=== PATIENT | female | born 1965 | race African-American/Black ===

== ENCOUNTER 2017-04-27 10:21 | Emergency (ER) | payer OTHER, MEDICAID ==
[~2017-04-27] VITALS: Ht 162.6 cm; Wt 79.4 kg
[2017-04-27] MEDS ORDERED: SODIUM CHLORIDE 0.9% 1,000 ML IV ONE (11:01)
[2017-04-27 11:24] LABS: Basophils # (auto) 0.1 uL; Eosinophils # (auto) 0.1 uL; Mean Corpuscular Hgb Conc. 31.8 g/dL (32.0-36.0); Monocytes # (auto) 0.3 uL
[2017-04-27] MEDS ORDERED: MORPHINE SULFATE 10 MG/ML INJ 1ML SDV IV ONE (11:30)
[2017-04-27] MEDS ORDERED: ONDANSETRON HCL 4 MG/2 ML VIAL IV ONE (11:30)
[2017-04-27 11:31] LABS: Hematocrit 40.8 % (36.0-46.0); Lymphocytes # (auto) 2.3 uL; Lymphocytes % (auto) 54.4 % (10.0-50.0); Mean Corpuscular Hemoglobin 24.7 pg (28.0-32.0); Mean Corpuscular Volume 77.7 fL (80.0-100.0); Monocytes % (auto) 7.9 % (0.0-12.0); Neutrophils # (auto) 1.4 uL; Neutrophils % (auto) 33.7 % (37.0-80.0); Nucleated Red Blood Cells % 0.2 %; Platelet Count (auto) 267 10^3/uL (140-450); Red Blood Cells 5.25 10^6/uL (4.0-5.20); Red Cell Distribution Width 13.5 % (11.8-14.3); White Blood Cell 4.2 10^3/uL (4.4-10.8)
[2017-04-27 11:34] LABS: Blood Alcohol < 3.0 mg/dL (0-5); Lipase 197 U/L (73-393)
[2017-04-27 11:43] LABS: Alanine Aminotransferase 39 U/L (13-56); Alkaline Phosphatase 64 U/L (45-117); Anion Gap 8 (5-15); Aspartate Aminotransferase 24 U/L (15-37); BUN/Creatinine Ratio 19.5; Bilirubin, Total 0.4 mg/dL (0.2-1.0); Blood Urea Nitrogen 15 mg/dL (7-18); Carbon Dioxide 26 mmol/L (21-32); Chloride 105 mmol/L (98-107); GFR African American 102 mL/min; GFR Non-African American 84 mL/min; Glucose 135 mg/dL (74-106); Magnesium 2.4 mg/dL (1.6-2.6); Potassium 4.1 mmol/L (3.5-5.1); Sodium 139 mmol/L (136-145); Total Protein 7.8 g/dL (6.4-8.2)
[2017-04-27] MEDS ORDERED: diphenhdrAMINE HCL 50 MG/1 ML VL IV ONE (12:00)
[2017-04-27] MEDS ORDERED: cloNIDine HCL 0.1 MG TAB PO ONE (12:00)
[2017-04-27 16:30] VITALS: BP 99/74
== END 2017-04-27 16:42 | disposition short-term general hospital (02) ==
LOC: ER 10:21
DX: R41.82 Altered mental status, unspecified (principal); I10 Essential (primary) hypertension; F12.90 Cannabis use, unspecified, uncomplicated; M19.90 Unspecified osteoarthritis, unspecified site; Z86.73 Personal history of transient ischemic attack (TIA), and cerebral infarction without residual deficits; Z90.49 Acquired absence of other specified parts of digestive tract
CPT/HCPCS: 36415; 70450; 74176; 80053; 80320; 83690; 83735; 84484; 85025; 93005; 96361; 96374; 96375; 99291; J1200; J2270; J2405; 94761

== ENCOUNTER 2019-07-28 12:10 | Inpatient (IN) | payer OTHER, MEDICAID ==
[~2019-07-28] VITALS: Ht 175.3 cm; Wt 79.5 kg
[2019-07-28] MEDS ORDERED: SODIUM CHLORIDE 0.9% 1,000 ML IV ONE (12:14)
[2019-07-28 13:21] LABS: Basophils # (auto) 0 10 ^3/uL (0-0.2); Eosinophils # (auto) 0 10 ^3/uL (0-0.8); Eosinophils % (auto) 1.1 % (0.0-7.0); Hemoglobin 12.5 g/dL (12.2-16.2); Lymphocytes # (auto) 1.9 10 ^3/uL (0.4-5.4); Monocytes # (auto) 0.3 10 ^3/uL (0-1.3); Neutrophils # (auto) 1.5 10 ^3/uL (1.6-8.6); Red Cell Distribution Width 14.3 % (11.8-14.3); White Blood Cell 3.8 10^3/uL (4.4-10.8)
[2019-07-28 13:23] LABS: Basophils % (auto) 1.1 % (0.0-2.0); Hematocrit 38.5 % (36.0-46.0); Lymphocytes % (auto) 49.3 % (10.0-50.0); Mean Corpuscular Hemoglobin 24.9 pg (28.0-32.0); Mean Corpuscular Hgb Conc. 32.5 g/dL (32.0-36.0); Mean Corpuscular Volume 76.5 fL (80.0-100.0); Monocytes % (auto) 7.8 % (0.0-12.0); Neutrophils % (auto) 40.7 % (37.0-80.0); Nucleated Red Blood Cells % 0.2 %; Platelet Count (auto) 243 10^3/uL (140-450); Red Blood Cells 5.04 10^6/uL (4.0-5.20)
[2019-07-28 13:40] LABS: Albumin 3.6 g/dL (3.4-5.0); Anion Gap 9 (5-15); Blood Urea Nitrogen 18 mg/dL (7-18); Calcium 8.7 mg/dL (8.5-10.1); Carbon Dioxide 25 mmol/L (21-32); Chloride 104 mmol/L (98-107); Glucose 102 mg/dL (74-106); Magnesium 2.2 mg/dL (1.6-2.6); Potassium 3.4 mmol/L (3.5-5.1); Sodium 138 mmol/L (136-145)
[2019-07-28] MEDS ORDERED: LORazepam 2MG/ML-1ML VIAL IV ONE (13:45)
[2019-07-28 13:47] LABS: Alanine Aminotransferase 25 U/L (13-56); Alkaline Phosphatase 56 U/L (45-117); Aspartate Aminotransferase 16 U/L (15-37); BUN/Creatinine Ratio 22.8; Bilirubin, Total 0.7 mg/dL (0.2-1.0); GFR African American 98 mL/min; GFR Non-African American 81 mL/min; Total Protein 7.2 g/dL (6.4-8.2)
[2019-07-28] MEDS ORDERED: SODIUM CHLORIDE 0.9% 500 ML IV ONE (14:45)
[2019-07-28] MEDS ORDERED: MORPHINE SULF INJ 2 MG/ML SYRINGE 1ML IV PRN ×2 (15:00→16:00)
[2019-07-28] MEDS ORDERED: NITROGLYCERIN 0.4 MG SL TAB SL PRN ×2 (15:00→16:00)
[2019-07-28] MEDS ORDERED: ALUM & MAG HYDROX-SIMETH LIQ(MAALOX) 30 ML PO PRN (16:00)
[2019-07-28] MEDS ORDERED: HYDROmorphone HCL 2 MG/ML VL IV PRN (16:00)
[2019-07-28] MEDS ORDERED: DOCUSATE SOD 100 MG CAP PO PRN (16:00)
[2019-07-28] MEDS ORDERED: HYDROcodone-ACET 5/325MG TAB PO PRN (16:00)
[2019-07-28] MEDS ORDERED: TEMAZEPAM 15 MG CAP PO PRN (16:00)
[2019-07-28] MEDS ORDERED: DEXTROSE (50%) 50ML SYRG IV PRN (16:00)
[2019-07-28] MEDS ORDERED: ONDANSETRON HCL 4 MG/2 ML VIAL IV PRN (16:00)
[2019-07-28] MEDS: InsuLIN REG 1unit/0.01ml Soln (100units/ml) SC SCH ×2 (16:48→22:00)
[2019-07-28] MEDS: ACCU-CHEK COMFORT CURVE STRIP VI SCH ×2 (16:49→22:10)
[2019-07-28 17:11] VITALS: BP 121/75
[2019-07-28 17:31] VITALS: BP 121/75
[2019-07-28] MEDS ORDERED: ASPI81CH43 PO (18:38)
[2019-07-28] MEDS ORDERED: METF-370 PO (18:38)
[2019-07-28] MEDS ORDERED: HYDR-4833 PO (18:38)
[2019-07-28] MEDS: SODIUM CHLORIDE 0.9% 1,000 ML IV SCH (18:41)
[2019-07-28] MEDS ORDERED: MECL25TA18 PO (18:50)
[2019-07-28] MEDS ORDERED: CYCL1TAB18 PO (18:50)
[2019-07-28] MEDS ORDERED: DICL1GEL35 TD (18:50)
[2019-07-28] MEDS ORDERED: CYCL1POW25 XX (18:50)
[2019-07-28] MEDS ORDERED: LIDO5CRE18 EX (18:50)
[2019-07-28 22:00] VITALS: BP 106/71
[2019-07-28] MEDS ORDERED: ATORVASTATIN 20 MG TAB PO SCH (22:00)
[2019-07-29] MEDS: SODIUM CHLORIDE 0.9% 1,000 ML IV SCH ×2 (05:09→18:30)
[2019-07-29 05:12] LABS: Hemoglobin 11.7 g/dL (12.2-16.2); White Blood Cell 4.2 10^3/uL (4.4-10.8)
[2019-07-29 05:16] LABS: Hematocrit 35.5 % (36.0-46.0); Mean Corpuscular Hemoglobin 25.2 pg (28.0-32.0); Mean Corpuscular Hgb Conc. 32.9 g/dL (32.0-36.0); Mean Corpuscular Volume 76.6 fL (80.0-100.0); Platelet Count (auto) 238 10^3/uL (140-450); Red Blood Cells 4.64 10^6/uL (4.0-5.20); Red Cell Distribution Width 14.5 % (11.8-14.3)
[2019-07-29 05:30] VITALS: BP 110/73
[2019-07-29 05:30] LABS: Blast Cells 0; Metamyelocytes % 0; Myelocytes % 0; Promyelocytes % 0
[2019-07-29 05:32] LABS: Magnesium 2.1 mg/dL (1.6-2.6); Potassium 3.5 mmol/L (3.5-5.1)
[2019-07-29 05:35] LABS: INR 1.22 (0.9-1.15); Partial Thromboplastin Time 25.7 sec (23.64-32.05)
[2019-07-29 05:38] LABS: Ferritin 47.2 ng/mL (10-322)
[2019-07-29 05:41] LABS: Albumin 3.3 g/dL (3.4-5.0); BUN/Creatinine Ratio 21.6; Bilirubin, Total 0.6 mg/dL (0.2-1.0); Calcium 8.2 mg/dL (8.5-10.1); Phosphorus 3.5 mg/dL (2.5-4.90); Total Protein 6.5 g/dL (6.4-8.2)
[2019-07-29 05:46] LABS: Band Neutrophils % (manual) 1; Monocytes % (manual) 6 (0-12)
[2019-07-29 05:47] LABS: Basophils % (manual) 1 (0.0-2.0); Eosinophils % (manual) 1 (0-7); Lymphocytes % (manual) 69 (10.0-50.0); Reactive Lymphocytes 1
[2019-07-29] MEDS: ACCU-CHEK COMFORT CURVE STRIP VI SCH ×3 (06:13→17:10)
[2019-07-29] MEDS: InsuLIN REG 1unit/0.01ml Soln (100units/ml) SC SCH ×3 (06:13→17:00)
[2019-07-29] MEDS ORDERED: ATOR80TA PO (06:32)
[2019-07-29] MEDS ORDERED: ALPR2TAB2 PO (06:43)
[2019-07-29] MEDS ORDERED: OME20GT GT (06:43)
[2019-07-29 09:00] VITALS: BP 116/77
[2019-07-29] MEDS ORDERED: ASPirin 81 mg TAB PO SCH (10:00)
[2019-07-29] MEDS ORDERED: ENOXAPARIN SOD 40 MG/0.4 ML SYRINGE SC SCH (10:00)
[2019-07-29] MEDS ORDERED: HYDROmorphone HCL 2 MG/ML VL IV PRN (10:15)
[2019-07-29] MEDS ORDERED: LORazepam 0.5 MG TAB PO PRN (10:15)
[2019-07-29 10:29] VITALS: BP 116/77
[2019-07-29 13:00] VITALS: BP 129/88
[2019-07-29 17:00] VITALS: BP 129/88
[2019-07-30 04:06] LABS: RPR Non Reactive (Non Reactive)
== END 2019-07-29 20:03 | disposition short-term general hospital (02) | DRG 302 ==
LOC: EDBD 12:10 → ER 12:10 → EDUNIT# 12:10 → TELE 12:11 → TELE-CENTR 17:17
PROVIDERS: ADMIT Hospitalist; ATTEND Internal Medicine
DX: I25.10 Atherosclerotic heart disease of native coronary artery without angina pectoris (principal); E43 Unspecified severe protein-calorie malnutrition; E27.40 Unspecified adrenocortical insufficiency; E11.9 Type 2 diabetes mellitus without complications; E87.6 Hypokalemia; F41.9 Anxiety disorder, unspecified; I10 Essential (primary) hypertension; G89.29 Other chronic pain; M54.5 Low back pain; I49.8 Other specified cardiac arrhythmias; Z79.82 Long term (current) use of aspirin; Z86.73 Personal history of transient ischemic attack (TIA), and cerebral infarction without residual deficits; Z90.710 Acquired absence of both cervix and uterus; Z68.25 Body mass index [BMI] 25.0-25.9, adult
CPT/HCPCS: 36415; 70450; 71045; 80053; 80061; 82306; 82533; 82607; 82728; 82962; 83036; 83615; 83735; 84100; 84443; 84484; 85025; 85045; 85610; 85730; 86592; G0378

== ENCOUNTER 2020-02-11 14:14 | Emergency (ER) | payer OTHER, MEDICAID ==
[~2020-02-11] VITALS: Ht 167.6 cm; Wt 74.8 kg
[~2020-02-11 14:14] MED LIST: ALPR2TAB2 PO; ASPI81CH43 PO; ATOR80TA PO; CYCL10TA6 PO; CYCL1POW25 XX; DICL1GEL50 TD; HYDR-4833 PO; LIDO5CRE18 EX; MECL25TA18 PO; METF-370 PO; OME20GT GT
[2020-02-11] MEDS ORDERED: SODIUM CHLORIDE 0.9% 1,000 ML IVB ONE (15:00)
[2020-02-11 15:05] LABS: Basophils # (auto) 0 10 ^3/uL (0-0.2); Eosinophils # (auto) 0 10 ^3/uL (0-0.8); Hemoglobin 13.8 g/dL (12.2-16.2); Neutrophils # (auto) 2.7 10 ^3/uL (1.6-8.6); Nucleated Red Blood Cells % 0.1 %; White Blood Cell 4.8 10^3/uL (4.4-10.8)
[2020-02-11 15:06] LABS: Basophils % (auto) 0.4 % (0.0-2.0); Eosinophils % (auto) 0.4 % (0.0-7.0); Hematocrit 42.9 % (36.0-46.0); Lymphocytes # (auto) 1.8 10 ^3/uL (0.4-5.4); Lymphocytes % (auto) 37.5 % (10.0-50.0); Mean Corpuscular Hemoglobin 25.6 pg (28.0-32.0); Mean Corpuscular Hgb Conc. 32.3 g/dL (32.0-36.0); Mean Corpuscular Volume 79.2 fL (80.0-100.0); Monocytes # (auto) 0.3 10 ^3/uL (0-1.3); Monocytes % (auto) 6.1 % (0.0-12.0); Neutrophils % (auto) 55.6 % (37.0-80.0); Platelet Count (auto) 259 10^3/uL (140-450); Red Blood Cells 5.41 10^6/uL (4.0-5.20); Red Cell Distribution Width 14.3 % (11.8-14.3)
[2020-02-11 15:26] LABS: Albumin 3.8 g/dL (3.4-5.0); Calcium 9.1 mg/dL (8.5-10.1); Potassium 3.5 mmol/L (3.5-5.1)
[2020-02-11 15:29] LABS: BUN/Creatinine Ratio 14.4; Bilirubin, Total 0.3 mg/dL (0.2-1.0); Total Protein 7.9 g/dL (6.4-8.2)
[2020-02-11] MEDS ORDERED: ONDANSETRON HCL 4 MG/2 ML VIAL IV ONE (15:30)
[2020-02-11] MEDS ORDERED: MORPHINE SULF INJ 2 MG/ML SYRINGE 1ML IV ONE (15:30)
[2020-02-11 15:51] LABS: INR 1.12 (0.9-1.15)
[2020-02-11] MEDS ORDERED: LORazepam 2MG/ML-1ML VIAL IV ONE (17:00)
[2020-02-11 20:22] LABS: Urine Bacteria FEW /hpf (None Seen); Urine Blood Negative /uL (Negative); Urine Mucus FEW (None Seen); Urine Specific Gravity 1.027 (1.001-1.035); Urine WBC 31 /hpf (0 - 5)
[2020-02-11] MEDS ORDERED: cefTRIAXone 1GM/50ML D5W 50 ML IV ONE (20:45)
[2020-02-11 21:45] VITALS: BP 125/85
== END 2020-02-11 22:16 | disposition home or self-care (01) ==
LOC: ER 14:14
DX: N39.0 Urinary tract infection, site not specified (principal); R11.2 Nausea with vomiting, unspecified; E11.9 Type 2 diabetes mellitus without complications; K21.9 Gastro-esophageal reflux disease without esophagitis; I10 Essential (primary) hypertension; Z90.49 Acquired absence of other specified parts of digestive tract; Z90.710 Acquired absence of both cervix and uterus; Z79.82 Long term (current) use of aspirin; Z79.899 Other long term (current) drug therapy
CPT/HCPCS: 36415; 71045; 74176; 80053; 81001; 83690; 83735; 84484; 85025; 85610; 85730; 93005; 96361; 96365; 96375; 99285; J0696; J2060; J2270; J2405

== ENCOUNTER 2020-02-27 18:26 | Emergency (ER) | payer OTHER, MEDICAID ==
[~2020-02-27] VITALS: Ht 167.6 cm; Wt 74.8 kg
[2020-02-27 18:47] VITALS: BP 144/86
[2020-02-27] MEDS ORDERED: PANTOPRAZOLE 40 MG/10 ML VIAL INJ IV STA (19:18)
[2020-02-27] MEDS ORDERED: ONDANSETRON HCL 4 MG/2 ML VIAL IV ONE (19:30)
[2020-02-27] MEDS ORDERED: SODIUM CHLORIDE 0.9% 500 ML IVB ONE (19:30)
[2020-02-27] MEDS ORDERED: MORPHINE SULFATE 4 MG/ML SYR/VIAL IV ONE (19:30)
[2020-02-27 20:19] LABS: Basophils # (auto) 0.1 10 ^3/uL (0-0.2); Eosinophils # (auto) 0 10 ^3/uL (0-0.8); Hematocrit 41.8 % (36.0-46.0); Monocytes # (auto) 0.4 10 ^3/uL (0-1.3); Neutrophils # (auto) 3.3 10 ^3/uL (1.6-8.6); Nucleated Red Blood Cells % 0.1 %; White Blood Cell 6.6 10^3/uL (4.4-10.8)
[2020-02-27 20:21] LABS: Basophils % (auto) 0.8 % (0.0-2.0); Eosinophils % (auto) 0.2 % (0.0-7.0); Hemoglobin 13.6 g/dL (12.2-16.2); Lymphocytes # (auto) 2.7 10 ^3/uL (0.4-5.4); Lymphocytes % (auto) 41.4 % (10.0-50.0); Mean Corpuscular Hemoglobin 25.5 pg (28.0-32.0); Mean Corpuscular Hgb Conc. 32.6 g/dL (32.0-36.0); Mean Corpuscular Volume 78.4 fL (80.0-100.0); Monocytes % (auto) 6.8 % (0.0-12.0); Neutrophils % (auto) 50.8 % (37.0-80.0); Platelet Count (auto) 311 10^3/uL (140-450); Red Blood Cells 5.33 10^6/uL (4.0-5.20); Red Cell Distribution Width 14.2 % (11.8-14.3)
[2020-02-27 21:12] LABS: Alkaline Phosphatase 59 U/L (45-117); Anion Gap 6 (5-15); Aspartate Aminotransferase 18 U/L (15-37); Blood Urea Nitrogen 16 mg/dL (7-18); Carbon Dioxide 27 mmol/L (21-32); Chloride 106 mmol/L (98-107); GFR African American 85 mL/min; GFR Non-African American 70 mL/min; Glucose 86 mg/dL (74-106); Potassium 3.6 mmol/L (3.5-5.1); Sodium 139 mmol/L (136-145)
[2020-02-27 21:13] LABS: Alanine Aminotransferase 29 U/L (13-56); Albumin 3.9 g/dL (3.4-5.0); Bilirubin, Total 0.3 mg/dL (0.2-1.0); Calcium 9.2 mg/dL (8.5-10.1); Total Protein 7.7 g/dL (6.4-8.2)
== END 2020-02-27 19:05 | disposition left against medical advice (07) ==
LOC: EDUNIT# 18:26 → ER 18:26 → EDBD 18:26 → ER 19:05
DX: R11.2 Nausea with vomiting, unspecified (principal); R10.9 Unspecified abdominal pain
CPT/HCPCS: 36415; 80053; 83690; 84484; 85025; 93005

== ENCOUNTER 2021-04-18 05:56 | Emergency (ER) | payer OTHER, MEDICAID ==
[~2021-04-18] VITALS: Ht 167.6 cm; Wt 84.8 kg
[~2021-04-18 05:56] MED LIST changes: +CYCL-839 PO; -CYCL10TA6 PO
[2021-04-18 06:19] VITALS: BP 132/79
[2021-04-18] MEDS ORDERED: ONDANSETRON ODT 4 MG TAB PO ONE (06:45)
[2021-04-18] MEDS ORDERED: SODIUM CHLORIDE 0.9% 1,000 ML IV ONE (06:45)
[2021-04-18] MEDS ORDERED: ACETAMINOPHEN 325 MG TAB PO ONE (06:45)
[2021-04-18 08:40] LABS: Basophils # (auto) 0 10 ^3/uL (0-0.2); Basophils % (auto) 0.3 % (0.0-2.0); Eosinophils # (auto) 0 10 ^3/uL (0-0.8); Eosinophils % (auto) 0.3 % (0.0-7.0); Hematocrit 36.8 % (36.0-46.0); Hemoglobin 12.1 g/dL (12.2-16.2); Lymphocytes # (auto) 0.2 10 ^3/uL (0.4-5.4); Lymphocytes % (auto) 5.2 % (10.0-50.0); Mean Corpuscular Hemoglobin 25.1 pg (28.0-32.0); Mean Corpuscular Hgb Conc. 32.8 g/dL (32.0-36.0); Mean Corpuscular Volume 76.6 fL (80.0-100.0); Monocytes # (auto) 0.5 10 ^3/uL (0-1.3); Monocytes % (auto) 10.9 % (0.0-12.0); Neutrophils # (auto) 3.9 10 ^3/uL (1.6-8.6); Neutrophils % (auto) 83.3 % (37.0-80.0); Nucleated Red Blood Cells % 0.1 %; Red Blood Cells 4.81 10^6/uL (4.0-5.20); Red Cell Distribution Width 13.9 % (11.8-14.3); White Blood Cell 4.6 10^3/uL (4.4-10.8)
[2021-04-18] MEDS ORDERED: KETOROLAC TROMETH 60MG/2ML VIAL IM ONE (09:15)
[2021-04-18 09:25] LABS: Potassium 3.4 mmol/L (3.5-5.1)
[2021-04-18] MEDS ORDERED: POTASSIUM CHL 20 Meq TABLET PO ONE (09:30)
[2021-04-18 09:32] LABS: Albumin 3.9 g/dL (3.4-5.0); BUN/Creatinine Ratio 17.9; Bilirubin, Total 0.5 mg/dL (0.2-1.0); Calcium 8.7 mg/dL (8.5-10.1); Total Protein 7.6 g/dL (6.4-8.2)
== END 2021-04-18 09:55 | disposition home or self-care (01) ==
LOC: ER 05:56 → EDBD 05:56 → ER 09:55
DX: R51.9 Headache, unspecified (principal); E86.0 Dehydration; F17.210 Nicotine dependence, cigarettes, uncomplicated; F12.10 Cannabis abuse, uncomplicated; E11.9 Type 2 diabetes mellitus without complications; I10 Essential (primary) hypertension; E78.5 Hyperlipidemia, unspecified; Z86.73 Personal history of transient ischemic attack (TIA), and cerebral infarction without residual deficits; Z90.49 Acquired absence of other specified parts of digestive tract; Z90.710 Acquired absence of both cervix and uterus; Z20.822 Contact with and (suspected) exposure to COVID-19
CPT/HCPCS: 36415; 70450; 80053; 85025; 87426; 96360; 96372; 99284; J1885; J7030; Q0162

== ENCOUNTER 2022-10-09 10:07 | Emergency (ER) | payer OTHER, MEDICAID ==
[~2022-10-09] VITALS: Ht 170.2 cm; Wt 100.0 kg
[~2022-10-09 10:07] MED LIST changes: -DICL1GEL50 TD; +DICL1GEL73 TD; +MECL1TAB32 PO; -MECL25TA18 PO
[2022-10-09 11:05] VITALS: BP 133/83
[2022-10-09] MEDS ORDERED: cefTRIAXone SOD 1,000 MG VL IM ONE (12:15)
[2022-10-09] MEDS ORDERED: ACETAMINOPHEN 500 MG TAB PO ONE (12:15)
[2022-10-09] MEDS ORDERED: AUG875T PO (12:35)
[2022-10-09] MEDS ORDERED: ACET-1080 PO (12:35)
== END 2022-10-09 12:44 | disposition home or self-care (01) ==
LOC: EDBD 10:07 → ER 10:07
DX: H66.91 Otitis media, unspecified, right ear (principal); J03.90 Acute tonsillitis, unspecified; E11.9 Type 2 diabetes mellitus without complications; K21.9 Gastro-esophageal reflux disease without esophagitis; E78.5 Hyperlipidemia, unspecified; I10 Essential (primary) hypertension; F17.210 Nicotine dependence, cigarettes, uncomplicated; Z86.73 Personal history of transient ischemic attack (TIA), and cerebral infarction without residual deficits; Z90.49 Acquired absence of other specified parts of digestive tract; Z90.710 Acquired absence of both cervix and uterus; Z79.82 Long term (current) use of aspirin; Z79.84 Long term (current) use of oral hypoglycemic drugs; Z79.899 Other long term (current) drug therapy
CPT/HCPCS: 71046; 93005; 96372; 99283; J0696

== ENCOUNTER 2023-04-02 17:39 | Emergency (ER) | payer OTHER, MEDICAID ==
[~2023-04-02] VITALS: Ht 170.2 cm; Wt 81.8 kg
[~2023-04-02 17:39] MED LIST changes: +ACET-1080 PO; +AUG875T PO
[2023-04-02 18:19] LABS: Basophils # (auto) 0.1 10 ^3/uL (0-0.2); Basophils % (auto) 0.7 % (0.0-2.0); Eosinophils # (auto) 0 10 ^3/uL (0-0.8); Eosinophils % (auto) 0.5 % (0.0-7.0); Hematocrit 42.5 % (36.0-46.0); Hemoglobin 13.9 g/dL (12.2-16.2); Lymphocytes # (auto) 3.2 10 ^3/uL (0.4-5.4); Lymphocytes % (auto) 41.4 % (10.0-50.0); Mean Corpuscular Hemoglobin 25.2 pg (28.0-32.0); Mean Corpuscular Hgb Conc. 32.8 g/dL (32.0-36.0); Mean Corpuscular Volume 76.8 fL (80.0-100.0); Monocytes # (auto) 0.6 10 ^3/uL (0-1.3); Monocytes % (auto) 7.9 % (0.0-12.0); Neutrophils # (auto) 3.9 10 ^3/uL (1.6-8.6); Neutrophils % (auto) 49.5 % (37.0-80.0); Nucleated Red Blood Cells % 0.1 %; Red Blood Cells 5.53 10^6/uL (4.0-5.20); Red Cell Distribution Width 13.8 % (11.8-14.3); White Blood Cell 7.8 10^3/uL (4.4-10.8)
[2023-04-02 18:35] LABS: Alanine Aminotransferase 38 U/L (7-40); Albumin 4.8 g/dL (3.2-4.8); Alkaline Phosphatase 75 U/L (46-116); Anion Gap 7 (5-15); Aspartate Aminotransferase 20 U/L (13-40); BUN/Creatinine Ratio 22.6 (10.0-20.0); Bilirubin, Total 0.5 mg/dL (0.2-1.0); Blood Urea Nitrogen 21 mg/dL (9-23); Calcium 9.7 mg/dL (8.7-10.4); Carbon Dioxide 26 mmol/L (20-30); Chloride 106 mmol/L (98-107); Glucose 150 mg/dL (74-106); Potassium 3.7 mmol/L (3.5-5.1); Sodium 139 mmol/L (136-145); Total Protein 7.6 g/dL (5.7-8.2)
[2023-04-02] MEDS ORDERED: ASPirin 325 MG TAB PO ONE (21:15)
[2023-04-02] MEDS ORDERED: IOHEXOL 350 MG/ML 100ML IJ ONE (21:48)
[2023-04-03] MEDS ORDERED: NITROGLYCERIN 0.4 MG SL TAB SL ONE (00:15)
[2023-04-03 07:32] VITALS: PULSE 53; RESP 16; O2SAT 94
[2023-04-03] MEDS ORDERED: NALOXONE HCL 1MG/ML 2ML SYRINGE ONE (09:47)
[2023-04-03] MEDS ORDERED: SODIUM CHLORIDE 0.9% 1,000 ML IV ONE (10:00)
[2023-04-03] MEDS ORDERED: NALOXONE HCL 1MG/ML 2ML SYRINGE IV ONE (10:00)
[2023-04-03 12:37] VITALS: BP 99/54; PULSE 52; RESP 19; TEMP 98.1; O2SAT 96
== END 2023-04-03 13:29 | disposition short-term general hospital (02) ==
LOC: ER 17:39
DX: R07.89 Other chest pain (principal); R79.89 Other specified abnormal findings of blood chemistry; R51.9 Headache, unspecified
CPT/HCPCS: 36415; 70450; 71046; 71275; 80053; 82962; 84484; 85025; 93005; 96361; 96374; 99285; J2310; J7030; Q9967